=== PATIENT | male | born 1985 ===

== ENCOUNTER 2020-09-01 13:39 | Inpatient (IN) | payer OTHER, SELFPAY ==
[2020-09-01 16:16] LABS: Bilirubin,Urine NEG (Negative); Blood,Urine NEG (Negative); Color,Urine Yellow (Yellow); Mucus,Urine FEW /HPF; Urobilinogen,Urine < 2.0 mg/dL (<2.0); WBC,Urine < 1.0 /HPF (0.0-6.0)
[2020-09-01 16:42] LABS: Alanine Aminotransferase 30 units/L (7-56); Albumin 4.4 g/dL (3.9-5); BUN/Creatinine Ratio 26; Blood Urea Nitrogen 21 mg/dL (9-20); Calcium 9.7 mg/dL (8.4-10.2); Hemolysis Index 48
[2020-09-01 17:09] LABS: Hematocrit 49.1 % (35.5-45.6); Hemoglobin 16.8 gm/dl (11.8-15.2); Mean Corpuscular HGB Conc 34 % (32-34); Mean Corpuscular Volume 82 fl (84-94); Platelet Count 217 K/mm3 (140-440); Red Blood Count 5.96 M/mm3 (3.65-5.03); Red Cell Distribution Width 13.3 % (13.2-15.2)
[2020-09-01 17:44] LABS: Basophils % (Manual) 0 % (0.0-1.8); Eosinophils % (Manual) 0 % (0.0-4.3); Total Cells Counted 100
[2020-09-01 17:45] LABS: RBC Morphology Normal
[2020-09-01] MEDS ORDERED: SODIUM CHLORIDE 0.9% 1000 ML 1,000 ML IV ONE ×2 (19:30→23:03)
[2020-09-01] MEDS ORDERED: ONDANSETRON 4 MG/2 ML INJ IV ONE ×2 (19:30→23:03)
[2020-09-01] MEDS ORDERED: MORPHINE 4 MG/1 ML INJ IV ONE ×2 (19:30→23:03)
--- NOTE | 2020-09-01 20:54 | Emergency Department Report ---
ED Abdominal Pain HPI - General Chief Complaint: Abdominal Pain Stated Complaint: ABD PAIN Time Seen by Provider: 09/01/20 19:28 Source: patient Mode of arrival: Ambulatory Limitations: No Limitations - History of Present Illness Initial Comments: Pt is a 35 year old male med hx: HTN, HLD, who presents for LUQ abd and flank pain. pain is described as 5/10 aching sharp. there is associated N/V . symptoms exacerbated by po intake, symptoms relieved by nothing, pt denies fever or chills,, no sob, no dizziness, no lightheadedness, pt denies hx of same,. MD Complaint: abdominal pain Migration to: no migration Severity scale (0 -10): 10 - Related Data Allergies Allergy/AdvReac Type Severity Reaction Status Date / Time No Known Allergies Allergy Unverified 09/01/20 15:10 ED Review of Systems ROS: Stated complaint: ABD PAIN Other details as noted in HPI Constitutional: denies: chills, fever Eyes: denies: eye pain, eye discharge, vision change ENT: denies: ear pain, throat pain Respiratory: denies: cough, shortness of breath, wheezing Cardiovascular: denies: chest pain, palpitations Endocrine: no symptoms reported Gastrointestinal: denies: abdominal pain, nausea, diarrhea Genitourinary: denies: urgency, dysuria Musculoskeletal: back pain (left flank ) Skin: denies: rash, lesions Neurological: denies: headache, weakness, paresthesias Psychiatric: denies: anxiety, depression Hematological/Lymphatic: denies: easy bleeding, easy bruising ED Past Medical Hx - Past Medical History Previous Medical History?: Yes Hx Hypertension: Yes - Social History Smoking Status: Never Smoker Substance Use Type: None ED Physical Exam - General Limitations: No Limitations General appearance: alert, in no apparent distress - Head Head exam: Present: atraumatic, normocephalic - Eye Eye exam: Present: normal appearance - ENT ENT exam: Present: mucous membranes moist - Neck Neck exam: Present: normal inspection, full ROM. Absent: tenderness - Respiratory Respiratory exam: Present: normal lung sounds bilaterally. Absent: respiratory distress, wheezes, stridor, chest wall tenderness - Cardiovascular Cardiovascular Exam: Present: regular rate, normal rhythm, normal heart sounds. Absent: systolic murmur, diastolic murmur, rubs, gallop - GI/Abdominal GI/Abdominal exam: Present: soft, tenderness (LUQ ), normal bowel sounds. Absent: distended, guarding, rebound, rigid, bruit, hernia - Rectal Rectal exam: Present: deferred - Extremities Exam Extremities exam: Present: normal inspection, full ROM. Absent: tenderness, calf tenderness - Back Exam Back exam: Present: normal inspection, full ROM, CVA tenderness (L). Absent: tenderness, vertebral tenderness - Neurological Exam Neurological exam: Present: alert, oriented X3, CN II-XII intact, normal gait - Psychiatric Psychiatric exam: Present: normal affect, normal mood - Skin Skin exam: Present: warm, dry, intact, normal color. Absent: rash ED Course Vital Signs 09/01/20 09/01/20 15:08 22:29 Temperature 97.4 F L 98.5 F Pulse Rate 69 119 H Respiratory 15 18 Rate Blood Pressure 146/95 Blood Pressure 155/114 [Left] O2 Sat by Pulse 100 97 Oximetry - Reevaluation(s) Reevaluation #1: consulted ED attending reference , reference abnormal CT Scan finding acute renal infarct left. Recommendation consult vascular surgery, Dr. Frias, recommendation: CTA Chest and Abd r/o thrombus 09/01/20 22:51 Reevaluation #2: called Dr Frias Vascular Surgery, advise that pt has had CT Abd and Pelvis with contrast, Radiology advises that CTA cannot be performed for 24 hrs after initial contrast dose. , Plan: admit to hospitalist Dx: Left Renal Infarct. Consulted hospitalist at this time, advises will call back to discuss case and treatment plan: 09/01/20 23:12 Reevaluation #3: Consulted Hospitalist Dr Riley ,recommendation will admit patient , Dx: Acute Renal Infarct, CT Angio as recommended by Vascular Surgery , will obtain janelle , advised Hospitalist that Vascular Surgery Consult Dr. Frias advises that he cannot make further recommendation or intervention until CTAs completed to indentify source of infarct. 09/01/20 23:30 Reevaluation #4: Pt care handoff to hospitalist , discussed same with patient, patient verbalized agreement and understanding of tx plan. 09/01/20 23:47 ED Medical Decision Making - Lab Data Result diagrams: 09/01/20 16:01 09/01/20 16:01 Labs 09/01/20 09/01/20 09/01/20 16:01 16:01 Unknown WBC 12.4 H RBC 5.96 H Hgb 16.8 H Hct 49.1 H MCV 82 L MCH 28 MCHC 34 RDW 13.3 Plt Count 217 Add Manual Diff Complete Total Counted 100 Seg Neutrophils % Installation Tech Seg Neuts % (Manual) 89.0 H Band Neutrophils % 0 Lymphocytes % (Manual) 7.0 L Reactive Lymphs % (Man) 0 Monocytes % (Manual) 4.0 Eosinophils % (Manual) 0 Basophils % (Manual) 0 Metamyelocytes % 0 Myelocytes % 0 Promyelocytes % 0 Blast Cells % 0 Nucleated RBC % Not Reportable Seg Neutrophils # Man 11.0 H Band Neutrophils # 0.0 Lymphocytes # (Manual) 0.9 L Abs React Lymphs (Man) 0.0 Monocytes # (Manual) 0.5 Eosinophils # (Manual) 0.0 Basophils # (Manual) 0.0 Metamyelocytes # 0.0 Myelocytes # 0.0 Promyelocytes # 0.0 Blast Cells # 0.0 WBC Morphology Not Reportable Hypersegmented Neuts Not Reportable Hyposegmented Neuts Not Reportable Hypogranular Neuts Not Reportable Smudge Cells Not Reportable Toxic Granulation Not Reportable Toxic Vacuolation Not Reportable Dohle Bodies Not Reportable Pelger-Huet Anomaly Not Reportable Brooke Rods Not Reportable Platelet Estimate Not Reportable Clumped Platelets Not Reportable Plt Clumps, EDTA Not Reportable Large Platelets Not Reportable Giant Platelets Not Reportable Platelet Satelliting Not Reportable Plt Morphology Comment Not Reportable RBC Morphology Normal Dimorphic RBCs Not Reportable Polychromasia Not Reportable Hypochromasia Not Reportable Poikilocytosis Not Reportable Anisocytosis Not Reportable Microcytosis Not Reportable Macrocytosis Not Reportable Spherocytes Not Reportable Pappenheimer Bodies Not Reportable Sickle Cells Not Reportable Target Cells Not Reportable Tear Drop Cells Not Reportable Ovalocytes Not Reportable Helmet Cells Not Reportable Rh[place] Bodies Not Reportable [place] Rings Not Reportable [place] Cells Not Reportable Bite Cells Not Reportable Crenated Cell Not Reportable Elliptocytes Not Reportable Acanthocytes (Spur) Not Reportable Rouleaux Not Reportable Hemoglobin C Crystals Not Reportable Schistocytes Not Reportable Malaria parasites Not Reportable Kevin Bodies Not Reportable Hem Pathologist Commnt No Sodium 135 L Potassium 3.7 Chloride 95.5 L Carbon Dioxide 30 Anion Gap 13 BUN 21 H Creatinine 0.8 Estimated GFR > 60 BUN/Creatinine Ratio 26 Glucose 123 H Calcium 9.7 Total Bilirubin 0.70 AST 30 ALT 30 Alkaline Phosphatase 77 Total Protein 7.8 Albumin 4.4 Albumin/Globulin Ratio 1.3 Lipase 15 Urine Color Yellow Urine Turbidity Clear Urine pH 7.0 Ur Specific [place] 1.029 Urine Protein 30 mg/dl Urine Glucose (UA) Neg Urine Ketones Tr Urine Blood Neg Urine Nitrite Neg Urine Bilirubin Neg Urine Urobilinogen < 2.0 Ur Leukocyte Esterase Neg Urine WBC (Auto) < 1.0 Urine RBC (Auto) 1.0 U Epithel Cells (Auto) < 1.0 Urine Mucus Few - EKG Data EKG shows normal: sinus rhythm Rate: normal - EKG Data When compared to previous EKG there are: other (no previous ekg available ) Interpretation: normal EKG (Normal EKG, No ST Elevated MS, interp by ED attending) - Radiology Data Radiology results: report reviewed, image reviewed Findings Reporting MD: Malvin Jacob Dictation Time: September 01, 2020 20:48 Cleaner: Not available Staff Midwife Date: CT abdomen pelvis w con INDICATION: abd pain r/o appendicitis. TECHNIQUE: All CT scans at this location are performed using CT dose reduction for ALARA by means of automated exposure control. COMPARISON: None available. FINDINGS: Lung bases are clear of acute disease. Liver, gallbladder, spleen, pancreas, right kidney and both adrenals are negative. Left kidney is abnormal, with no perfusion of the lower pole, with clear demarcation from the perfusion portions of this kidney, suggesting renal infarction. Pelvis Normal appendix. Urinary bladder is negative. No free fluid or inflammation. No significant bowel abnormalities. IMPRESSION: 1. Findings are very suggestive of acute infarction of the lower pole of the left kidney. Signer Name: Malvin Jacob MD Signed: 09/01/2020 8:48 PM Workstation Name: [id number] - Medical Decision Making Findings Reporting MD: Malvin Jacob Dictation Time: September 01, 2020 20:48 Cleaner: Not available Staff Midwife Date: CT abdomen pelvis w con INDICATION: abd pain r/o appendicitis. TECHNIQUE: All CT scans at this location are performed using CT dose reduction for ALARA by means of automated exposure control. COMPARISON: None available. FINDINGS: Lung bases are clear of acute disease. Liver, gallbladder, spleen, pancreas, right kidney and both adrenals are negative. Left kidney is abnormal, with no perfusion of the lower pole, with clear demarcation from the perfusion portions of this kidney, suggesting renal infarction. Pelvis Normal appendix. Urinary bladder is negative. No free fluid or inflammation. No significant bowel abnormalities. IMPRESSION: 1. Findings are very suggestive of acute infarction of the lower pole of the left kidney. Signer Name: Malvin Jacob MD Signed: 09/01/2020 8:48 PM Workstation Name: [id number] Critical care attestation.: If time is entered above; I have spent that time in minutes in the direct care of this critically ill patient, excluding procedure time. ED Disposition Clinical Impression: Renal infarct Disposition: DC-09 OP ADMIT IP TO THIS HOSP Is pt being admited?: Yes Does the pt Need Aspirin: No Condition: Stable Time of Disposition: 23:36
--- NOTE | 2020-09-01 21:52 | Cat Scan Report ---
CT abdomen pelvis w con INDICATION: abd pain r/o appendicitis. TECHNIQUE: All CT scans at this location are performed using CT dose reduction for ALARA by means of automated e xposure control. COMPARISON: None available. FINDINGS: Lung bases are clear of acute disease. Liver, gallbladder, spleen, pancreas, right kidney and both ad renals are negative. Left kidney is abnormal, with no perfusion of the lower pole, with clear demarca tion from the perfusion portions of this kidney, suggesting renal infarction. Pelvis Normal appendix. Urinary bladder is negative. No free fluid or inflammation. No significant bowel abn ormalities. IMPRESSION: 1. Findings are very suggestive of acute infarction of the lower pole of the left kidney. Signer Name: Malvin Jacob MD Signed: 09/01/2020 9:48 PM Workstation Name: [id number]
[2020-09-01 23:22] LABS: INR 1.03 (0.87-1.13)
[2020-09-01 23:23] LABS: Partial Thromboplastin Time 27.8 Sec. (24.2-36.6)
--- NOTE | 2020-09-01 23:26 | XRay Report ---
CHEST 1 VIEW 09/01/2020 11:19 PM INDICATION / CLINICAL INFORMATION: cough fever. COMPARISON: None available. FINDINGS: SUPPORT DEVICES: None. HEART / MEDIASTINUM: No significant abnormality. LUNGS / PLEURA: No significant pulmonary or pleural abnormality. No pneumothorax. ADDITIONAL FINDINGS: No significant additional findings. IMPRESSION: 1. No acute findings. Signer Name: Deandre Gallego MD Signed: 09/01/2020 11:21 PM Workstation Name: [id number]
[2020-09-01] MEDS ORDERED: SODIUM CHLORIDE 0.9% 1000 ML 1,000 ML IV SCH (23:45)
[2020-09-01] MEDS ORDERED: HEPARIN 10,000 UNITS/10 ML VIAL IV ONE (23:46)
[2020-09-02 00:40] LABS: Hematocrit 47.1 % (35.5-45.6); Hemoglobin 16.1 gm/dl (11.8-15.2)
[2020-09-02 00:53] LABS: INR 1.17 (0.87-1.13)
[2020-09-02 01:05] LABS: Alanine Aminotransferase 30 units/L (7-56)
[2020-09-02 01:06] LABS: Bilirubin,Direct < 0.2 mg/dL (0-0.2)
[2020-09-02 01:10] LABS: Partial Thromboplastin Time > 240.0 Sec. (24.2-36.6)
[2020-09-02] MEDS ORDERED: ONDANSETRON 4 MG/2 ML INJ IV PRN (01:45)
[2020-09-02] MEDS ORDERED: MAGNESIUM HYDROXIDE (MOM) ORAL LIQD UDC PO PRN (01:45)
[2020-09-02] MEDS: HEPARIN/ 0.45% NACL DRIP 25,000 UNIT/500 ML BAG IV SCH ×2 (01:49→17:41)
--- NOTE | 2020-09-02 01:55 | History and Physical Report ---
History of Present Illness Date of examination: 09/02/20 Date of admission: 09/02/2020 Chief complaint: Left Flank pain History of present illness: 35-year-old male with known history of hypertension presenting to the emergency room today complaining of for left flank pain. Pain is said to be sharp and he has had some associated nausea and vomiting. He denies any fever or chills, denies any chest pain or shortness of breath, denies any headache or dizziness. Patient denies any hematuria or dysuria. Pain is said to be about 5-6 over 10 in severity and he describes it be sharp. Pain is made worse by oral intake. No no relieving factor. Work-up in the emergency room today reveals left renal infarction on the CT angiogram of the abdomen and pelvis. Vascular surgeon Dr. Frias was consulted by the ER physician recommendation is to have a CT angiogram of the chest and abdomen. However test cannot be done immediately because patient has had IV contrast for the CT of the abdomen. Meanwhile patient has been commenced on anticoagulation and will schedule for angiogram as recommended by the vascular surgeon. Past History Past Medical History: hypertension, hyperlipidemia Past Surgical History: No surgical history Social history: no significant social history Family history: no significant family history Medications and Allergies Allergies Allergy/AdvReac Type Severity Reaction Status Date / Time No Known Allergies Allergy Verified 09/01/20 23:50 Home Medications Medication Instructions Recorded Confirmed Last Taken Type No Known Home Medications [No 09/02/20 09/02/20 Unknown History Reported Home Medications] Active Meds: Active Medications Acetaminophen (Tylenol) 650 mg PO Q4H PRN PRN Reason: Pain MILD(1-3)/Fever >100.5/MANUEL Sodium Chloride (Nacl 0.9% 1000 Ml) 1,000 mls @ 125 mls/hr IV ONCE ONE Stop: 09/02/20 07:02 Last Admin: 09/01/20 23:27 Dose: 125 mls/hr Documented by: Sodium Chloride (Nacl 0.9% 1000 Ml) 1,000 mls @ 125 mls/hr IV DIRECT SAMUEL Heparin Sodium/Sodium Chloride (Heparin/ 0.45% Nacl-25,000 Unit/500 Ml) 25,000 unit in 500 mls @ 23 mls/hr IV TITR SAMUEL; Protocol Last Admin: 09/02/20 01:49 Dose: 1,150 units/hr, 23 mls/hr Documented by: Sodium Chloride (Nacl 0.9% 1000 Ml) 1,000 mls @ 75 mls/hr IV DIRECT SAMUEL Magnesium Hydroxide (Milk Of Magnesia) 30 ml PO Q4H PRN PRN Reason: Constipation Morphine Sulfate (Morphine) 2 mg IV Q4H PRN PRN Reason: Pain, Moderate (4-6) Ondansetron HCl (Zofran) 4 mg IV Q8H PRN PRN Reason: Nausea And Vomiting Sodium Chloride (Sodium Chloride Flush Syringe 10 Ml) 10 ml IV BID SAMUEL Sodium Chloride (Sodium Chloride Flush Syringe 10 Ml) 10 ml IV PRN PRN PRN Reason: LINE FLUSH Review of Systems Constitutional: no fever, no chills Ears, nose, mouth and throat: no nasal congestion, no sore throat Cardiovascular: no chest pain, no palpitations Respiratory: no cough, no shortness of breath Genitourinary Male: flank pain (left), no dysuria, no hematuria, no nocturia Musculoskeletal: no neck pain, no low back pain Integumentary: no rash, no pruritis Neurological: no headaches, no confusion Psychiatric: no anxiety, no depression Exam - Constitutional Vitals: Temp Pulse Resp BP Pulse Ox 98.5 F 119 H 18 155/114 97 09/01/20 22:29 09/01/20 22:29 09/01/20 22:29 09/01/20 22:29 09/01/20 22:29 General appearance: Present: no acute distress, well-nourished - EENT Eyes: Present: PERRL, EOM intact. Absent: scleral icterus ENT: hearing intact, clear oral mucosa, dentition normal - Neck Neck: Present: supple, normal ROM - Respiratory Respiratory effort: normal Respiratory: bilateral: CTA - Cardiovascular Rhythm: regular Heart Sounds: Present: S1 & S2. Absent: gallop, systolic murmur, diastolic murmur, rub - Extremities Extremities: no ischemia, pulses intact, pulses symmetrical, No edema, Full ROM Peripheral Pulses: within normal limits - Abdominal General gastrointestinal: Present: soft, tender (Left flank), non-distended, normal bowel sounds. Absent: mass - Integumentary Integumentary: Present: clear, warm, dry. Absent: rash - Musculoskeletal Musculoskeletal: strength equal bilaterally - Psychiatric Psychiatric: appropriate mood/affect, intact judgment & insight, memory intact, cooperative - Neurologic Neurologic: CNII-XII intact, no focal deficits, moves all extremities HEART Score - HEART Score Troponin: Troponin T < 0.010 ng/mL (0.00-0.029) 09/01/20 22:54 Results - Labs CBC & Chem 7: 09/02/20 00:19 09/01/20 16:01 Labs: Abnormal lab results 09/01/20 09/01/20 09/02/20 Range/Units 16:01 16:01 00:19 WBC 12.4 H (4.5-11.0) K/mm3 RBC 5.96 H (3.65-5.03) M/mm3 Hgb 16.8 H 16.1 H (11.8-15.2) gm/dl Hct 49.1 H 47.1 H (35.5-45.6) % MCV 82 L (84-94) fl Seg Neuts % (Manual) 89.0 H (40.0-70.0) % Lymphocytes % (Manual) 7.0 L (13.4-35.0) % Seg Neutrophils # Man 11.0 H (1.8-7.7) K/mm3 Lymphocytes # (Manual) 0.9 L (1.2-5.4) K/mm3 PT (12.2-14.9) Sec. INR (0.87-1.13) APTT (24.2-36.6) Sec. Sodium 135 L (137-145) mmol/L Chloride 95.5 L (98-107) mmol/L BUN 21 H (9-20) mg/dL Glucose 123 H (75-100) mg/dL 09/02/20 Range/Units 00:19 WBC (4.5-11.0) K/mm3 RBC (3.65-5.03) M/mm3 Hgb (11.8-15.2) gm/dl Hct (35.5-45.6) % MCV (84-94) fl Seg Neuts % (Manual) (40.0-70.0) % Lymphocytes % (Manual) (13.4-35.0) % Seg Neutrophils # Man (1.8-7.7) K/mm3 Lymphocytes # (Manual) (1.2-5.4) K/mm3 PT 15.0 H (12.2-14.9) Sec. INR 1.17 H (0.87-1.13) APTT > 240.0 H* (24.2-36.6) Sec. Sodium (137-145) mmol/L Chloride (98-107) mmol/L BUN (9-20) mg/dL Glucose (75-100) mg/dL Assessment and Plan - Patient Problems (1) Renal infarct Current Visit: Yes Status: Acute Plan to address problem: Patient placed on anticoagulation. We will request for CT angiogram of the chest and abdomen We will await vascular surgery surgeon evaluation and recommendation. (2) Hypertension Current Visit: Yes Status: Acute Plan to address problem: We will resume routine home medications and monitor vital signs closely. (3) DVT prophylaxis Current Visit: Yes Status: Acute Plan to address problem: Patient on anticoagulation. (4) Full code status Current Visit: Yes Status: Acute
[2020-09-02] MEDS: MORPHINE 2 MG/1 ML INJ IV PRN ×4 (04:25→22:47)
[2020-09-02] MEDS: SODIUM CHLORIDE 0.9% 1000 ML 1,000 ML IV SCH ×2 (04:30→17:30)
--- NOTE | 2020-09-02 11:32 | Progress Note ---
Assessment and Plan Assessment and plan: --Acute renal infarct/lower pole left kidney Current Visit: Yes Status: Acute Plan to address problem: Patient placed on heparin drip We will request for CT angiogram of the chest and abdomen Echocardiogram; to rule out cardioembolic source Cardiology consult if needed Vascular consulted, follow evaluation and recommendations --SIRS; Current Visit: Yes Status: Acute Plan to address problem: By criteria, fever, tachycardia, leukocytosis Urine and blood cultures Chest x-ray negative, urine analysis negative -Hypertension Current Visit: Yes Status: Acute Plan to address problem: We will resume routine home medications and monitor vital signs closely. --DVT prophylaxis Current Visit: Yes Status: Acute Plan to address problem: Patient on anticoagulation. --Full code status Current Visit: Yes Status: Acute We will closely monitor the patient and adjust management as needed Follow vascular evaluation and recommendations, follow CTA abdomen and CTA chest Plan of care reviewed with the patient and his nurse History Interval history: I have seen and examined the patient at the bedside today patient's chart Patient's chart, current medications, tests and reports reviewed Admitted with flank pain, initial work-up consistent with renal infarct Patient continues to have Hospitalist Physical - Constitutional Vitals: Temp Pulse Resp BP Pulse Ox 98.5 F 98 H 16 124/80 98 09/01/20 22:29 09/02/20 02:00 09/02/20 02:00 09/02/20 02:00 09/02/20 02:00 General appearance: Present: no acute distress, well-nourished - EENT Eyes: Present: PERRL, EOM intact - Neck Neck: Present: supple, normal ROM - Respiratory Respiratory effort: normal Respiratory: bilateral: diminished, negative: rales, rhonchi, wheezing - Cardiovascular Rhythm: regular Heart Sounds: Present: S1 & S2 - Extremities Extremities: no ischemia, No edema - Abdominal General gastrointestinal: soft, non-tender, non-distended, normal bowel sounds - Integumentary Integumentary: Present: clear, warm - Psychiatric Psychiatric: appropriate mood/affect, cooperative - Neurologic Neurologic: moves all extremities HEART Score - HEART Score Troponin: Troponin T < 0.010 ng/mL (0.00-0.029) 09/01/20 22:54 Results - Labs CBC & Chem 7: 09/02/20 00:19 09/01/20 16:01 Labs: Laboratory Last Values WBC 12.4 K/mm3 (4.5-11.0) H 09/01/20 16:01 RBC 5.96 M/mm3 (3.65-5.03) H 09/01/20 16:01 Hgb 16.1 gm/dl (11.8-15.2) H 09/02/20 00:19 Hct 47.1 % (35.5-45.6) H 09/02/20 00:19 MCV 82 fl (84-94) L 09/01/20 16:01 MCH 28 pg (28-32) 09/01/20 16:01 MCHC 34 % (32-34) 09/01/20 16:01 RDW 13.3 % (13.2-15.2) 09/01/20 16:01 Plt Count 199 K/mm3 (140-440) 09/02/20 00:19 Add Manual Diff Complete 09/01/20 16: Total Counted 100 09/01/20 16:01 Seg Neutrophils % Rabbet Operator 09/01/20 16:01 Seg Neuts % (Manual) 89.0 % (40.0-70.0) H 09/01/20 16:01 Band Neutrophils % 0 % 09/01/20 16:01 Lymphocytes % (Manual) 7.0 % (13.4-35.0) L 09/01/20 16:01 Reactive Lymphs % (Man) 0 % 09/01/20 16:01 Monocytes % (Manual) 4.0 % (0.0-7.3) 09/01/20 16:01 Eosinophils % (Manual) 0 % (0.0-4.3) 09/01/20 16:01 Basophils % (Manual) 0 % (0.0-1.8) 09/01/20 16:01 Metamyelocytes % 0 % 09/01/20 16:01 Myelocytes % 0 % 09/01/20 16:01 Promyelocytes % 0 % 09/01/20 16:01 Blast Cells % 0 % 09/01/20 16:01 Nucleated RBC % Not Reportable 09/01/20 16:01 Seg Neutrophils # Man 11.0 K/mm3 (1.8-7.7) H 09/01/20 16:01 Band Neutrophils # 0.0 K/mm3 09/01/20 16:01 Lymphocytes # (Manual) 0.9 K/mm3 (1.2-5.4) L 09/01/20 16:01 Abs React Lymphs (Man) 0.0 K/mm3 09/01/20 16:01 Monocytes # (Manual) 0.5 K/mm3 (0.0-0.8) 09/01/20 16:01 Eosinophils # (Manual) 0.0 K/mm3 (0.0-0.4) 09/01/20 16:01 Basophils # (Manual) 0.0 K/mm3 (0.0-0.1) 09/01/20 16:01 Metamyelocytes # 0.0 K/mm3 09/01/20 16:01 Myelocytes # 0.0 K/mm3 09/01/20 16:01 Promyelocytes # 0.0 K/mm3 09/01/20 16:01 Blast Cells # 0.0 K/mm3 09/01/20 16:01 WBC Morphology Not Reportable 09/01/20 16:01 Hypersegmented Neuts Not Reportable 09/01/20 16:01 Hyposegmented Neuts Not Reportable 09/01/20 16:01 Hypogranular Neuts Not Reportable 09/01/20 16:01 Smudge Cells Not Reportable 09/01/20 16:01 Toxic Granulation Not Reportable 09/01/20 16:01 Toxic Vacuolation Not Reportable 09/01/20 16:01 Dohle Bodies Not Reportable 09/01/20 16:01 Pelger-Huet Anomaly Not Reportable 09/01/20 16:01 Brooke Rods Not Reportable 09/01/20 16:01 Platelet Estimate Not Reportable 09/01/20 16:01 Clumped Platelets Not Reportable 09/01/20 16:01 Plt Clumps, EDTA Not Reportable 09/01/20 16:01 Large Platelets Not Reportable 09/01/20 16:01 Giant Platelets Not Reportable 09/01/20 16:01 Platelet Satelliting Not Reportable 09/01/20 16:01 Plt Morphology Comment Not Reportable 09/01/20 16:01 RBC Morphology Normal 09/01/20 16:01 Dimorphic RBCs Not Reportable 09/01/20 16:01 Polychromasia Not Reportable 09/01/20 16:01 Hypochromasia Not Reportable 09/01/20 16:01 Poikilocytosis Not Reportable 09/01/20 16:01 Anisocytosis Not Reportable 09/01/20 16:01 Microcytosis Not Reportable 09/01/20 16:01 Macrocytosis Not Reportable 09/01/20 16:01 Spherocytes Not Reportable 09/01/20 16:01 Pappenheimer Bodies Not Reportable 09/01/20 16:01 Sickle Cells Not Reportable 09/01/20 16:01 Target Cells Not Reportable 09/01/20 16:01 Tear Drop Cells Not Reportable 09/01/20 16:01 Ovalocytes Not Reportable 09/01/20 16:01 Helmet Cells Not Reportable 09/01/20 16:01 Rhoades-Page Bodies Not Reportable 09/01/20 16:01 Coleman Rings Not Reportable 09/01/20 16:01 Elton Cells Not Reportable 09/01/20 16:01 Bite Cells Not Reportable 09/01/20 16:01 Crenated Cell Not Reportable 09/01/20 16:01 Elliptocytes Not Reportable 09/01/20 16:01 Acanthocytes (Spur) Not Reportable 09/01/20 16:01 Rouleaux Not Reportable 09/01/20 16:01 Hemoglobin C Crystals Not Reportable 09/01/20 16:01 Schistocytes Not Reportable 09/01/20 16:01 Malaria parasites Not Reportable 09/01/20 16:01 Kevin Bodies Not Reportable 09/01/20 16:01 Hem Pathologist Commnt No 09/01/20 16:01 PT 15.0 Sec. (12.2-14.9) H 09/02/20 00:19 INR 1.17 (0.87-1.13) H 09/02/20 00:19 APTT > 240.0 Sec. (24.2-36.6) H* 09/02/20 00:19 Sodium 135 mmol/L (137-145) L 09/01/20 16:01 Potassium 3.7 mmol/L (3.6-5.0) 09/01/20 16:01 Chloride 95.5 mmol/L (98-107) L 09/01/20 16:01 Carbon Dioxide 30 mmol/L (22-30) 09/01/20 16:01 Anion Gap 13 mmol/L 09/01/20 16:01 BUN 21 mg/dL (9-20) H 09/01/20 16:01 Creatinine 0.8 mg/dL (0.8-1.3) 09/01/20 16:01 Estimated GFR > 60 ml/min 09/01/20 16:01 BUN/Creatinine Ratio 26 % 09/01/20 16:01 Glucose 123 mg/dL (75-100) H 09/01/20 16:01 Calcium 9.7 mg/dL (8.4-10.2) 09/01/20 16:01 Total Bilirubin 0.50 mg/dL (0.1-1.2) 09/02/20 00:19 Direct Bilirubin < 0.2 mg/dL (0-0.2) 09/02/20 00:19 Indirect Bilirubin 0.3 mg/dL 09/02/20 00:19 AST 31 units/L (5-40) 09/02/20 00:19 ALT 30 units/L (7-56) 09/02/20 00:19 Alkaline Phosphatase 73 units/L (35-129) 09/02/20 00:19 Troponin T < 0.010 ng/mL (0.00-0.029) 09/01/20 22:54 Total Protein 6.6 g/dL (6.3-8.2) 09/02/20 00:19 Albumin 4.0 g/dL (3.9-5) 09/02/20 00:19 Albumin/Globulin Ratio 1.5 % 09/02/20 00:19 Lipase 15 units/L (13-60) 09/01/20 16:01 Urine Color Yellow (Yellow) 09/01/20 Unknown Urine Turbidity Clear (Clear) 09/01/20 Unknown Urine pH 7.0 (5.0-7.0) 09/01/20 Unknown Ur Specific [place] 1.029 (1.003-1.030) 09/01/20 Unknown Urine Protein 30 mg/dl mg/dL (Negative) 09/01/20 Unknown Urine Glucose (UA) Neg mg/dL (Negative) 09/01/20 Unknown Urine Ketones Tr mg/dL (Negative) 09/01/20 Unknown Urine Blood Neg (Negative) 09/01/20 Unknown Urine Nitrite Neg (Negative) 09/01/20 Unknown Urine Bilirubin Neg (Negative) 09/01/20 Unknown Urine Urobilinogen < 2.0 mg/dL (<2.0) 09/01/20 Unknown Ur Leukocyte Esterase Neg (Negative) 09/01/20 Unknown Urine WBC (Auto) < 1.0 /HPF (0.0-6.0) 09/01/20 Unknown Urine RBC (Auto) 1.0 /HPF (0.0-6.0) 09/01/20 Unknown U Epithel Cells (Auto) < 1.0 /HPF (0-13.0) 09/01/20 Unknown Urine Mucus Few /HPF 09/01/20 Unknown Rubio/IV: Voiding Method Toilet IV Catheter Type [Right INT / Saline Lock Forearm] Active Medications - Current Medications Current Medications: Generic Name Dose Route Start Last Admin Trade Name Freq PRN Reason Stop Dose Admin Acetaminophen 650 mg 09/02/20 01:45 Tylenol PO Q4H PRN Pain MILD(1-3)/Fever >100.5/MANUEL Heparin Sodium/Sodium Chloride 25,000 unit in 500 mls @ 23 mls/hr 09/02/20 02:00 09/02/20 01:49 Heparin/ 0.45% Nacl-25,000 Unit/500 Ml IV 1,150 units/hr TITR SAMUEL 23 mls/hr Administration Protocol 1,150 UNITS/HR Sodium Chloride 1,000 mls @ 75 mls/hr 09/02/20 01:45 09/02/20 04:30 Nacl 0.9% 1000 Ml IV 75 mls/hr DIRECT SAMUEL Administration Magnesium Hydroxide 30 ml 09/02/20 01:45 Milk Of Magnesia PO Q4H PRN Constipation Morphine Sulfate 2 mg 09/02/20 01:45 09/02/20 09:24 Morphine IV 2 mg Q4H PRN Administration Pain, Moderate (4-6) Ondansetron HCl 4 mg 09/02/20 01:45 Zofran IV Q8H PRN Nausea And Vomiting Sodium Chloride 10 ml 09/02/20 10:00 Sodium Chloride Flush Syringe 10 Ml IV BID SAMUEL Sodium Chloride 10 ml 09/02/20 01:45 Sodium Chloride Flush Syringe 10 Ml IV PRN PRN LINE FLUSH
--- NOTE | 2020-09-02 11:57 | Consultation ---
History of Present Illness - Reason for Consult Consult date: 09/02/20 Left Renal Infarct Requesting physician: JAMEY WILLARD - History of Present Illness The patient is a 32 year old male with a history of HTN and HLD who presented to the Emergency Department with complaints of a sudden onset of left side abdominal pain that began a 0700 that morning. He states he had had similar pain in the past but it had always resolved after several minutes and this epis ode did not get better and was worse than the previous episodes of pain. He states the pain was also associated with nausea and he vomited with any attempted oral intake. He states he had a fever however he did not have a thermometer to check his temperature. He denies any productive cough but does state that he has a history of occasional left side chest pain that has been present for years. His hypertension was previously poorly controlled however he was able to manage it better after losing 40-50 pounds. He denies any alcohol, tobacco, or illicit drug use. He reports a history of nanci a rare bacteria in [place], approximately 15 years ago [place], that caused him to develop ulceration on his left leg. He states that it was unable to be treated in [place] and he had ulcerations on his leg that would not heal until he received the proper treatment [place], [place], approximately 1 1/2 years ago. He has no additional complaints at this time. Past History Past Medical History: hypertension, hyperlipidemia Past Surgical History: No surgical history Social history: no significant social history Family history: no significant family history Medications and Allergies Allergies Allergy/AdvReac Type Severity Reaction Status Date / Time No Known Allergies Allergy Verified 09/01/20 23:50 Home Medications Medication Instructions Recorded Confirmed Last Taken Type No Known Home Medications [No 09/02/20 09/02/20 Unknown History Reported Home Medications] Active Meds: Active Medications Acetaminophen (Tylenol) 650 mg PO Q4H PRN PRN Reason: Pain MILD(1-3)/Fever >100.5/MANUEL Heparin Sodium/Sodium Chloride (Heparin/ 0.45% Nacl-25,000 Unit/500 Ml) 25,000 unit in 500 mls @ 23 mls/hr IV TITR SAMUEL; Protocol Last Admin: 09/02/20 01:49 Dose: 1,150 units/hr, 23 mls/hr Documented by: Sodium Chloride (Nacl 0.9% 1000 Ml) 1,000 mls @ 75 mls/hr IV DIRECT SAMUEL Last Admin: 09/02/20 04:30 Dose: 75 mls/hr Documented by: Magnesium Hydroxide (Milk Of Magnesia) 30 ml PO Q4H PRN PRN Reason: Constipation Morphine Sulfate (Morphine) 2 mg IV Q4H PRN PRN Reason: Pain, Moderate (4-6) Last Admin: 09/02/20 09:24 Dose: 2 mg Documented by: Ondansetron HCl (Zofran) 4 mg IV Q8H PRN PRN Reason: Nausea And Vomiting Sodium Chloride (Sodium Chloride Flush Syringe 10 Ml) 10 ml IV BID SAMUEL Sodium Chloride (Sodium Chloride Flush Syringe 10 Ml) 10 ml IV PRN PRN PRN Reason: LINE FLUSH Review of Systems All systems: negative Exam - Constitutional Vitals: Temp Pulse Resp BP Pulse Ox 98.5 F 98 H 16 124/80 98 09/01/20 22:29 09/02/20 02:00 09/02/20 02:00 09/02/20 02:00 09/02/20 02:00 General appearance: Present: no acute distress - Neck Neck: Present: supple - Respiratory Respiratory effort: normal - Cardiovascular Rhythm: regular - Extremities Extremities: no ischemia, pulses intact (All pulses are palpable throughout) Extremity abnormal: other (multiple healed ulcerations on his left lower leg) - Abdominal General gastrointestinal: Present: soft, non-tender, non-distended Male genitourinary: Present: deferred - Rectal Rectal Exam: deferred Results - Labs CBC & Chem 7: 09/02/20 00:19 09/01/20 16:01 Labs: Abnormal lab results 09/01/20 09/01/20 09/02/20 Range/Units 16:01 16:01 00:19 WBC 12.4 H (4.5-11.0) K/mm3 RBC 5.96 H (3.65-5.03) M/mm3 Hgb 16.8 H 16.1 H (11.8-15.2) gm/dl Hct 49.1 H 47.1 H (35.5-45.6) % MCV 82 L (84-94) fl Seg Neuts % (Manual) 89.0 H (40.0-70.0) % Lymphocytes % (Manual) 7.0 L (13.4-35.0) % Seg Neutrophils # Man 11.0 H (1.8-7.7) K/mm3 Lymphocytes # (Manual) 0.9 L (1.2-5.4) K/mm3 PT (12.2-14.9) Sec. INR (0.87-1.13) APTT (24.2-36.6) Sec. Sodium 135 L (137-145) mmol/L Chloride 95.5 L (98-107) mmol/L BUN 21 H (9-20) mg/dL Glucose 123 H (75-100) mg/dL 09/02/20 Range/Units 00:19 WBC (4.5-11.0) K/mm3 RBC (3.65-5.03) M/mm3 Hgb (11.8-15.2) gm/dl Hct (35.5-45.6) % MCV (84-94) fl Seg Neuts % (Manual) (40.0-70.0) % Lymphocytes % (Manual) (13.4-35.0) % Seg Neutrophils # Man (1.8-7.7) K/mm3 Lymphocytes # (Manual) (1.2-5.4) K/mm3 PT 15.0 H (12.2-14.9) Sec. INR 1.17 H (0.87-1.13) APTT > 240.0 H* (24.2-36.6) Sec. Sodium (137-145) mmol/L Chloride (98-107) mmol/L BUN (9-20) mg/dL Glucose (75-100) mg/dL - Imaging and Cardiology Chest x-ray: image reviewed CT scan - pelvis: image reviewed Assessment and Plan The patient is a 35 year old male who presented with abdominal pain and was found to have an infarction of the lower pole of the left kidney. This would most likely come from an embolic source which has not yet been identified. The CT of the A/P, with contrast does not, reveal a source in the imaged section of the aorta. The thoracic aorta has not been imaged and should be ruled out with a CTA of the chest however I think its unlikely to be the source as well. Given the patient's history of left leg infection, that he dealt with for 15 years, it's possible that he may have vegetations on his valve. Would recommend consu lting cardiology for an ECHO to evaluate his heart as well. Would continue heparin gtt until a source is identified.
[2020-09-02] MEDS ORDERED: FLU VACC QUAD 2020-2021 (6 months +)/PF 60 0.5 ML SYRINGE IM ONE (12:00)
[2020-09-02] MEDS: ACETAMINOPHEN 325 MG TAB PO PRN (19:07)
--- NOTE | 2020-09-02 23:44 | Cat Scan Report ---
CTA CHEST, ABDOMEN, AND PELVIS WITH CONTRAST INDICATION / CLINICAL INFORMATION: R/O Thrombus - ID source for renal Infarct. TECHNIQUE: Axial CT images were obtained through the chest, abdomen, and pelvis before and after injection of 10 0 mL Omnipaque 350 IV contrast. 3 plane MIP and/or 3D reconstructions were produced. All CT scans at this location are performed using CT dose reduction for ALARA by means of automated exposure control. COMPARISON: None available. FINDINGS: HEART: No significant abnormality. 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 Divert iculum contains a small amount of mural thrombus best seen on axial series 2 image 72. No significant atherosclerotic calcification. GREAT VESSELS: No significant abnormality. PULMONARY ARTERIES: No significant abnormality. ADDITIONAL CHEST FINDINGS: No significant abnormality. ABDOMINAL AORTA: No significant abnormality. RENAL ARTERIES: 2 right renal arteries appear within normal limits. Main left renal artery supplying the upper pole is patent. Infarct of the lower pole of the left kidney is unchanged since prior study . CELIAC ARTERY: No significant abnormality. SUPERIOR MESENTERIC ARTERY: No significant abnormality. INFERIOR MESENTERIC ARTERY: No significant abnormality. RIGHT ILIAC ARTERIES: No significant abnormality.. LEFT ILIAC ARTERIES: No significant abnormality.. ADDITIONAL ABDOMINOPELVIC FINDINGS: No significant abnormality. SKELETAL STRUCTURES: No significant abnormality. IMPRESSION: 1. 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 Thi s could potentially be the source of embolism related left renal infarct. Signer Name: Deandre Gallego MD Signed: 09/02/2020 11:39 PM Workstation Name: [id number]
[2020-09-03] MEDS: MORPHINE 2 MG/1 ML INJ IV PRN ×5 (05:05→22:15)
[2020-09-03] MEDS: METOPROLOL TARTRATE 25 MG TAB PO SCH ×2 (09:46→22:51)
[2020-09-03 10:33] LABS: BUN/Creatinine Ratio 11; Blood Urea Nitrogen 9 mg/dL (9-20); Hemolysis Index 18
[2020-09-03 10:45] LABS: INR 1.16 (0.87-1.13)
[2020-09-03 10:46] LABS: Hematocrit 46.4 % (35.5-45.6); Hemoglobin 16.2 gm/dl (11.8-15.2); Mean Corpuscular HGB Conc 35 % (32-34); Mean Corpuscular Volume 81 fl (84-94); Platelet Count 161 K/mm3 (140-440); Red Blood Count 5.72 M/mm3 (3.65-5.03); Red Cell Distribution Width 13.3 % (13.2-15.2)
--- NOTE | 2020-09-03 10:46 | Progress Note ---
Assessment and Plan Assessment and plan: --Acute renal infarct/lower pole left kidney Current Visit: Yes Status: Acute Plan to address problem: On heparin drip Vascular following. 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 --Hypokalemia; Replenish with oral KCl, monitor electrolytes. --SIRS; Current Visit: Yes Status: Acute Plan to address problem: By criteria, fever, tachycardia, leukocytosis, Urine and blood cultures Chest x-ray negative, urine analysis negative -Hypertension; Current Visit: Yes Status: Acute Plan to address problem: Continue metoprolol, as needed labetalol Closely monitor --DVT prophylaxis Current Visit: Yes Status: Acute Plan to address problem: Patient on heparin drip --Full code status Current Visit: Yes Status: Acute We will closely monitor the patient and adjust management as needed Follow vascular and cardiology evaluation and recommendations Plan of care reviewed with the patient and his nurse History Interval history: I have seen and examined the patient at the bedside this morning Patient's chart, tests reports, vital signs reviewed Patient continues to have left flank pain Slight improvement with pain medications Alert awake oriented Vital signs reviewed Low-grade fever Hospitalist Physical - Constitutional Vitals: Temp Pulse Resp BP Pulse Ox 100.1 F H 104 H 20 118/78 96 09/03/20 04:44 09/03/20 09:46 09/03/20 04:44 09/03/20 09:46 09/03/20 04:44 General appearance: Present: no acute distress, well-nourished - EENT Eyes: Present: PERRL, EOM intact - Neck Neck: Present: supple, normal ROM - Respiratory Respiratory effort: normal Respiratory: bilateral: diminished, negative: rales, rhonchi, wheezing - Cardiovascular Rhythm: regular Heart Sounds: Present: S1 & S2 - Extremities Extremities: no ischemia, No edema - Abdominal General gastrointestinal: soft, non-tender, non-distended, normal bowel sounds - Integumentary Integumentary: Present: clear, warm - Psychiatric Psychiatric: appropriate mood/affect, cooperative - Neurologic Neurologic: moves all extremities HEART Score - HEART Score Troponin: Troponin T < 0.010 ng/mL (0.00-0.029) 09/01/20 22:54 Results - Labs CBC & Chem 7: 09/03/20 08:51 09/03/20 08:51 Labs: Laboratory Last Values WBC 12.4 K/mm3 (4.5-11.0) H 09/01/20 16:01 RBC 5.96 M/mm3 (3.65-5.03) H 09/01/20 16:01 Hgb 16.1 gm/dl (11.8-15.2) H 09/02/20 00:19 Hct 47.1 % (35.5-45.6) H 09/02/20 00:19 MCV 82 fl (84-94) L 09/01/20 16:01 MCH 28 pg (28-32) 09/01/20 16:01 MCHC 34 % (32-34) 09/01/20 16:01 RDW 13.3 % (13.2-15.2) 09/01/20 16:01 Plt Count 199 K/mm3 (140-440) 09/02/20 00:19 Add Manual Diff Complete 09/01/20 16:01 Total Counted 100 09/01/20 16:01 Seg Neutrophils % [employer] Rep[employer]r 09/01/20 16:01 Seg Neuts % (Manual) 89.0 % (40.0-70.0) H 09/01/20 16:01 Band Neutrophils % 0 % 09/01/20 16:01 Lymphocytes % (Manual) 7.0 % (13.4-35.0) L 09/01/20 16:01 Reactive Lymphs % (Man) 0 % 09/01/20 16:01 Monocytes % (Manual) 4.0 % (0.0-7.3) 09/01/20 16:01 Eosinophils % (Manual) 0 % (0.0-4.3) 09/01/20 16:01 Basophils % (Manual) 0 % (0.0-1.8) 09/01/20 16:01 Metamyelocytes % 0 % 09/01/20 16:01 Myelocytes % 0 % 09/01/20 16:01 Promyelocytes % 0 % 09/01/20 16:01 Blast Cells % 0 % 09/01/20 16:01 Nucleated RBC % Not Reportable 09/01/20 16:01 Seg Neutrophils # Man 11.0 K/mm3 (1.8-7.7) H 09/01/20 16:01 Band Neutrophils # 0.0 K/mm3 09/01/20 16:01 Lymphocytes # (Manual) 0.9 K/mm3 (1.2-5.4) L 09/01/20 16:01 Abs React Lymphs (Man) 0.0 K/mm3 09/01/20 16:01 Monocytes # (Manual) 0.5 K/mm3 (0.0-0.8) 09/01/20 16:01 Eosinophils # (Manual) 0.0 K/mm3 (0.0-0.4) 09/01/20 16:01 Basophils # (Manual) 0.0 K/mm3 (0.0-0.1) 09/01/20 16:01 Metamyelocytes # 0.0 K/mm3 09/01/20 16:01 Myelocytes # 0.0 K/mm3 09/01/20 16:01 Promyelocytes # 0.0 K/mm3 09/01/20 16:01 Blast Cells # 0.0 K/mm3 09/01/20 16:01 WBC Morphology Not Reportable 09/01/20 16:01 Hypersegmented Neuts Not Reportable 09/01/20 16:01 Hyposegmented Neuts Not Reportable 09/01/20 16:01 Hypogranular Neuts Not Reportable 09/01/20 16:01 Smudge Cells Not Reportable 09/01/20 16:01 Toxic Granulation Not Reportable 09/01/20 16:01 Toxic Vacuolation Not Reportable 09/01/20 16:01 Dohle Bodies Not Reportable 09/01/20 16:01 Pelger-Huet Anomaly Not Reportable 09/01/20 16:01 Brooke Rods Not Reportable 09/01/20 16:01 Platelet Estimate Not Reportable 09/01/20 16:01 Clumped Platelets Not Reportable 09/01/20 16:01 Plt Clumps, EDTA Not Reportable 09/01/20 16:01 Large Platelets Not Reportable 09/01/20 16:01 Giant Platelets Not Reportable 09/01/20 16:01 Platelet Satelliting Not Reportable 09/01/20 16:01 Plt Morphology Comment Not Reportable 09/01/20 16:01 RBC Morphology Normal 09/01/20 16:01 Dimorphic RBCs Not Reportable 09/01/20 16:01 Polychromasia Not Reportable 09/01/20 16:01 Hypochromasia Not Reportable 09/01/20 16:01 Poikilocytosis Not Reportable 09/01/20 16:01 Anisocytosis Not Reportable 09/01/20 16:01 Microcytosis Not Reportable 09/01/20 16:01 Macrocytosis Not Reportable 09/01/20 16:01 Spherocytes Not Reportable 09/01/20 16:01 Pappenheimer Bodies Not Reportable 09/01/20 16:01 Sickle Cells Not Reportable 09/01/20 16:01 Target Cells Not Reportable 09/01/20 16:01 Tear Drop Cells Not Reportable 09/01/20 16:01 Ovalocytes Not Reportable 09/01/20 16:01 Helmet Cells Not Reportable 09/01/20 16:01 [place] Bodies Not Reportable 09/01/20 16:01 [place] Rings Not Reportable 09/01/20 16:01 Elton Cells Not Reportable 09/01/20 16:01 Bite Cells Not Reportable 09/01/20 16:01 Crenated Cell Not Reportable 09/01/20 16:01 Elliptocytes Not Reportable 09/01/20 16:01 Acanthocytes (Spur) Not Reportable 09/01/20 16:01 Rouleaux Not Reportable 09/01/20 16:01 Hemoglobin C Crystals Not Reportable 09/01/20 16:01 Schistocytes Not Reportable 09/01/20 16:01 Malaria parasites Not Reportable 09/01/20 16:01 Kevin Bodies Not Reportable 09/01/20 16:01 Hem Pathologist Commnt No 09/01/20 16:01 PT 15.0 Sec. (12.2-14.9) H 09/02/20 00:19 INR 1.17 (0.87-1.13) H 09/02/20 00:19 APTT > 240.0 Sec. (24.2-36.6) H* 09/02/20 00:19 Heparin Anti-Xa Level < 0.10 U.I./ml (0.3-0.7) L 09/03/20 03:00 Sodium 137 mmol/L (137-145) 09/03/20 08:51 Potassium 3.2 mmol/L (3.6-5.0) L 09/03/20 08:51 Chloride 98.8 mmol/L (98-107) 09/03/20 08:51 Carbon Dioxide 27 mmol/L (22-30) 09/03/20 08:51 Anion Gap 14 mmol/L 09/03/20 08:51 BUN 9 mg/dL (9-20) 09/03/20 08:51 Creatinine 0.8 mg/dL (0.8-1.3) 09/03/20 08:51 Estimated GFR > 60 ml/min 09/03/20 08:51 BUN/Creatinine Ratio 11 % 09/03/20 08:51 Glucose 128 mg/dL (75-100) H 09/03/20 08:51 Calcium 9.0 mg/dL (8.4-10.2) 09/03/20 08:51 Total Bilirubin 0.50 mg/dL (0.1-1.2) 09/02/20 00:19 Direct Bilirubin < 0.2 mg/dL (0-0.2) 09/02/20 00:19 Indirect Bilirubin 0.3 mg/dL 09/02/20 00:19 AST 31 units/L (5-40) 09/02/20 00:19 ALT 30 units/L (7-56) 09/02/20 00:19 Alkaline Phosphatase 73 units/L (35-129) 09/02/20 00:19 Troponin T < 0.010 ng/mL (0.00-0.029) 09/01/20 22:54 Total Protein 6.6 g/dL (6.3-8.2) 09/02/20 00:19 Albumin 4.0 g/dL (3.9-5) 09/02/20 00:19 Albumin/Globulin Ratio 1.5 % 09/02/20 00:19 Lipase 15 units/L (13-60) 09/01/20 16:01 Urine Color Yellow (Yellow) 09/01/20 Unknown Urine Turbidity Clear (Clear) 09/01/20 Unknown Urine pH 7.0 (5.0-7.0) 09/01/20 Unknown Ur Specific [place] 1.029 (1.003-1.030) 09/01/20 Unknown Urine Protein 30 mg/dl mg/dL (Negative) 09/01/20 Unknown Urine Glucose (UA) Neg mg/dL (Negative) 09/01/20 Unknown Urine Ketones Tr mg/dL (Negative) 09/01/20 Unknown Urine Blood Neg (Negative) 09/01/20 Unknown Urine Nitrite Neg (Negative) 09/01/20 Unknown Urine Bilirubin Neg (Negative) 09/01/20 Unknown Urine Urobilinogen < 2.0 mg/dL (<2.0) 09/01/20 Unknown Ur Leukocyte Esterase Neg (Negative) 09/01/20 Unknown Urine WBC (Auto) < 1.0 /HPF (0.0-6.0) 09/01/20 Unknown Urine RBC (Auto) 1.0 /HPF (0.0-6.0) 09/01/20 Unknown U Epithel Cells (Auto) < 1.0 /HPF (0-13.0) 09/01/20 Unknown Urine Mucus Few /HPF 09/01/20 Unknown Microbiology: Microbiology 09/02/20 20:39 Peripheral/Venous Blood Culture - Preliminary Culture in Progress 09/02/20 20:39 Peripheral/Venous Blood Culture - Preliminary Culture in Progress Rubio/IV: Voiding Method Toilet IV Catheter Type [Right INT / Saline Lock Forearm] Active Medications - Current Medications Current Medications: Generic Name Dose Route Start Last Admin Trade Name Freq PRN Reason Stop Dose Admin Acetaminophen 650 mg 09/02/20 01:45 09/02/20 19:07 Tylenol PO 650 mg Q4H PRN Administration Pain MILD(1-3)/Fever >100.5/MANUEL Heparin Sodium/Sodium Chloride 25,000 unit in 500 mls @ 23 mls/hr 09/02/20 02:00 09/03/20 03:13 Heparin/ 0.45% Nacl-25,000 Unit/500 Ml IV 1,350 units/hr TITR SAMUEL 27 mls/hr Titration Protocol 1,150 UNITS/HR Sodium Chloride 1,000 mls @ 75 mls/hr 09/02/20 01:45 09/02/20 17:30 Nacl 0.9% 1000 Ml IV 75 mls/hr DIRECT SAMUEL Administration Labetalol HCl 10 mg 09/03/20 06:10 09/03/20 06:42 Labetalol IV 10 mg Q4H PRN Administration Hypertension Magnesium Hydroxide 30 ml 09/02/20 01:45 Milk Of Magnesia PO Q4H PRN Constipation Metoprolol Tartrate 12.5 mg 09/03/20 10:00 09/03/20 09:46 Metoprolol PO 12.5 mg BID SAMUEL Administration Morphine Sulfate 2 mg 09/02/20 01:45 09/03/20 09:38 Morphine IV 2 mg Q4H PRN Administration Pain, Moderate (4-6) Ondansetron HCl 4 mg 09/02/20 01:45 Zofran IV Q8H PRN Nausea And Vomiting Sodium Chloride 10 ml 09/02/20 10:00 09/02/20 22:50 Sodium Chloride Flush Syringe 10 Ml IV 10 ml BID SAMUEL Administration Sodium Chloride 10 ml 09/02/20 01:45 Sodium Chloride Flush Syringe 10 Ml IV PRN PRN LINE FLUSH
[2020-09-03 11:30] LABS: Basophils % (Manual) 0 % (0.0-1.8); Eosinophils % (Manual) 0 % (0.0-4.3); Total Cells Counted 100
[2020-09-03 11:31] LABS: Platelet Estimate Consistent w Auto; RBC Morphology Normal
[2020-09-03] MEDS ORDERED: HEPARIN 10,000 UNITS/10 ML VIAL IV ONE ×2 (12:17→12:29)
[2020-09-03] MEDS: HEPARIN/ 0.45% NACL DRIP 25,000 UNIT/500 ML BAG IV SCH (15:49)
[2020-09-03] MEDS: SODIUM CHLORIDE 0.9% 1000 ML 1,000 ML IV SCH (15:49)
[2020-09-03] MEDS ORDERED: POTASSIUM CHLORIDE ER 20 MEQ TAB PO NR (16:03)
--- NOTE | 2020-09-03 16:16 | Progress Note ---
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 This may be the cause of his renal infarct. His TTE was fairly unremarkable. The patient may benefit from a SEVERINO to provide additional information however Cardiology could answer whether or not that would be helpful. If the diverticulum is the cause of his renal infarct he will likely require a stent graft placement vs some other endovascular repair as the stent graft placement would require additional limbs/bypasses given the proximity to the left subclavian artery. This procedure is not performed in this hospital so he would likely require definitive care at [facility] or [place]. This could be performed as an outpatient however he would need to be discharged with oral anticoagulation until he was able to undergo surgical management. Subjective Date of service: 09/03/20 Interval history: The patient has no new complaints. Objective - Constitutional Vitals: Vital Signs - 12hr 09/03/20 09/03/20 09/03/20 04:44 06:42 09:45 Temperature 100.1 F H Pulse Rate 108 H 108 H Respiratory 20 Rate Blood Pressure 154/103 154/103 118/78 O2 Sat by Pulse 96 Oximetry 09/03/20 09:46 Temperature Pulse Rate 104 H Respiratory Rate Blood Pressure 118/78 O2 Sat by Pulse Oximetry General appearance: Present: no acute distress - Neck Neck: supple - Respiratory Respiratory effort: normal - Cardiovascular Rhythm: regular Extremities: no ischemia, pulses intact - Gastrointestinal General gastrointestinal: Present: soft, non-tender, non-distended - Labs CBC & Chem 7: 09/03/20 08:51 09/03/20 08:51 Labs: Abnormal lab results 09/02/20 09/03/20 09/03/20 Range/Units 23:46 03:00 08:51 WBC 17.2 H (4.5-11.0) K/mm3 RBC 5.72 H (3.65-5.03) M/mm3 Hgb 16.2 H (11.8-15.2) gm/dl Hct 46.4 H (35.5-45.6) % MCV 81 L (84-94) fl MCHC 35 H (32-34) % Seg Neuts % (Manual) 85.0 H (40.0-70.0) % Lymphocytes % (Manual) 5.0 L (13.4-35.0) % Monocytes % (Manual) 10.0 H (0.0-7.3) % Seg Neutrophils # Man 14.6 H (1.8-7.7) K/mm3 Lymphocytes # (Manual) 0.9 L (1.2-5.4) K/mm3 Monocytes # (Manual) 1.7 H (0.0-0.8) K/mm3 INR (0.87-1.13) Heparin Anti-Xa Level 0.18 L < 0.10 L (0.3-0.7) U.I./ml Potassium (3.6-5.0) mmol/L Glucose (75-100) mg/dL 09/03/20 09/03/20 Range/Units 08:51 08:51 WBC (4.5-11.0) K/mm3 RBC (3.65-5.03) M/mm3 Hgb (11.8-15.2) gm/dl Hct (35.5-45.6) % MCV (84-94) fl MCHC (32-34) % Seg Neuts % (Manual) (40.0-70.0) % Lymphocytes % (Manual) (13.4-35.0) % Monocytes % (Manual) (0.0-7.3) % Seg Neutrophils # Man (1.8-7.7) K/mm3 Lymphocytes # (Manual) (1.2-5.4) K/mm3 Monocytes # (Manual) (0.0-0.8) K/mm3 INR 1.16 H (0.87-1.13) Heparin Anti-Xa Level < 0.10 L (0.3-0.7) U.I./ml Potassium 3.2 L (3.6-5.0) mmol/L Glucose 128 H (75-100) mg/dL - Imaging and cardiology CT scan - abdomen: image reviewed CT scan - chest: image reviewed Medications & Allergies - Medications Allergies/Adverse Reactions: Allergies No Known Allergies Allergy (Verified 09/01/20 23:50) Home Medications: Home Medications Medication Instructions Recorded Confirmed Last Taken Type Atorvastatin [Lipitor Tab] 40 mg PO QHS 09/02/20 09/02/20 08/31/20 History Losartan Potassium 50 mg PO 09/02/20 08/31/20 History hydroCHLOROthiazide [HCTZ] 25 mg PO QDAY 09/02/20 09/02/20 08/31/20 History Active Medications: Generic Name Dose Route Start Last Admin Trade Name Freq PRN Reason Stop Dose Admin Acetaminophen 650 mg 09/02/20 01:45 09/02/20 19:07 Tylenol PO 650 mg Q4H PRN Administration Pain MILD(1-3)/Fever >100.5/MANUEL Heparin Sodium/Sodium Chloride 25,000 unit in 500 mls @ 23 mls/hr 09/02/20 02:00 09/03/20 15:49 Heparin/ 0.45% Nacl-25,000 Unit/500 Ml IV 1,550 units/hr TITR SAMUEL 31 mls/hr Administration Protocol 1,150 UNITS/HR Sodium Chloride 1,000 mls @ 75 mls/hr 09/02/20 01:45 09/03/20 15:49 Nacl 0.9% 1000 Ml IV 75 mls/hr DIRECT SAMUEL Administration Labetalol HCl 10 mg 09/03/20 06:10 09/03/20 06:42 Labetalol IV 10 mg Q4H PRN Administration Hypertension Magnesium Hydroxide 30 ml 09/02/20 01:45 Milk Of Magnesia PO Q4H PRN Constipation Metoprolol Tartrate 12.5 mg 09/03/20 10:00 09/03/20 09:46 Metoprolol PO 12.5 mg BID SAMUEL Administration Morphine Sulfate 2 mg 09/02/20 01:45 09/03/20 14:26 Morphine IV 2 mg Q4H PRN Administration Pain, Moderate (4-6) Ondansetron HCl 4 mg 09/02/20 01:45 Zofran IV Q8H PRN Nausea And Vomiting Sodium Chloride 10 ml 09/02/20 10:00 09/03/20 11:00 Sodium Chloride Flush Syringe 10 Ml IV 10 ml BID SAMUEL Administration Sodium Chloride 10 ml 09/02/20 01:45 Sodium Chloride Flush Syringe 10 Ml IV PRN PRN LINE FLUSH HEART Score - HEART Score Troponin: Troponin T < 0.010 ng/mL (0.00-0.029) 09/01/20 22:54
[2020-09-03] MEDS: ACETAMINOPHEN 325 MG TAB PO PRN (23:09)
[2020-09-04] MEDS: MORPHINE 2 MG/1 ML INJ IV PRN ×2 (06:09→14:36)
[2020-09-04] MEDS: SODIUM CHLORIDE 0.9% 1000 ML 1,000 ML IV SCH ×2 (06:16→19:53)
[2020-09-04 09:07] LABS: Hematocrit 40.8 % (35.5-45.6); Hemoglobin 14.1 gm/dl (11.8-15.2)
[2020-09-04] MEDS: METOPROLOL TARTRATE 25 MG TAB PO SCH (09:40)
[2020-09-04] MEDS: HEPARIN/ 0.45% NACL DRIP 25,000 UNIT/500 ML BAG IV SCH (09:45)
--- NOTE | 2020-09-04 10:26 | Progress Note ---
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 --Acute renal infarct/lower pole left kidney' Current Visit: Yes Status: Acute Plan to address problem: Possible source mural thrombus thoracic aorta . 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 containing a small amount of mural thrombus Could be the source of embolism related to left renal infarct Cardiology advised COVID-19 test, prior to SEVERINO However today cardiology feels that patient does not need SEVERINO --Hypokalemia; Replenish with oral KCl, monitor electrolytes. --SIRS; Current Visit: Yes Status: Acute Plan to address problem: By criteria, fever, tachycardia, leukocytosis, Urine and blood cultures Chest x-ray negative, urine analysis negative -Hypertension; Current Visit: Yes Status: Acute Plan to address problem: Continue metoprolol, as needed labetalol Closely monitor --DVT prophylaxis Current Visit: Yes Status: Acute Plan to address problem: Patient on heparin drip --Full code status Current Visit: Yes Status: Acute We will closely monitor the patient and adjust management as needed Follow vascular and cardiology evaluation and recommendations Plan of care reviewed with the patient and his nurse Possible discharge tomorrow if stable Case management To assist with medications and discharge planning History Interval history: Patient seen and examined medical records reviewed Patient feels slightly better no new complaints Vital signs noted Heparin drip Hospitalist Physical - Constitutional Vitals: Temp Pulse Resp BP Pulse Ox 99.7 F H 99 H 22 154/102 97 09/04/20 06:11 09/04/20 06:16 09/04/20 06:11 09/04/20 06:16 09/04/20 06:11 General appearance: Present: no acute distress, well-nourished - EENT Eyes: Present: PERRL, EOM intact - Neck Neck: Present: supple, normal ROM - Respiratory Respiratory effort: normal Respiratory: bilateral: diminished, negative: rales, rhonchi, wheezing - Cardiovascular Rhythm: regular Heart Sounds: Present: S1 & S2 - Extremities Extremities: no ischemia, No edema - Abdominal General gastrointestinal: soft, non-tender, non-distended, normal bowel sounds - Integumentary Integumentary: Present: clear, warm - Psychiatric Psychiatric: appropriate mood/affect, cooperative - Neurologic Neurologic: CNII-XII intact, moves all extremities HEART Score - HEART Score Troponin: Troponin T < 0.010 ng/mL (0.00-0.029) 09/01/20 22:54 Results - Labs CBC & Chem 7: 09/04/20 07:09 09/03/20 08:51 Labs: Laboratory Last Values WBC 17.2 K/mm3 (4.5-11.0) H 09/03/20 08:51 RBC 5.72 M/mm3 (3.65-5.03) H 09/03/20 08:51 Hgb 14.1 gm/dl (11.8-15.2) 09/04/20 07:09 Hct 40.8 % (35.5-45.6) 09/04/20 07:09 MCV 81 fl (84-94) L 09/03/20 08:51 MCH 28 pg (28-32) 09/03/20 08:51 MCHC 35 % (32-34) H 09/03/20 08:51 RDW 13.3 % (13.2-15.2) 09/03/20 08:51 Plt Count 146 K/mm3 (140-440) 09/04/20 07:09 Lymph % (Auto) Merchandising Coordinator 09/03/20 08:51 [place] % (Auto) Merchandising Coordinator 09/03/20 08:51 Eos % (Auto) Merchandising Coordinator 09/03/20 08:51 Baso % (Auto) Merchandising Coordinator 09/03/20 08:51 Lymph # (Auto) Merchandising Coordinator 09/03/20 08:51 [place] # (Auto) Merchandising Coordinator 09/03/20 08:51 Eos # (Auto) Merchandising Coordinator 09/03/20 08:51 Baso # (Auto) Merchandising Coordinator 09/03/20 08:51 Add Manual Diff Complete 09/03/20 08:51 Total Counted 100 09/03/20 08:51 Seg Neutrophils % Merchandising Coordinator 09/03/20 08:51 Seg Neuts % (Manual) 85.0 % (40.0-70.0) H 09/03/20 08:51 Band Neutrophils % 0 % 09/03/20 08:51 Lymphocytes % (Manual) 5.0 % (13.4-35.0) L 09/03/20 08:51 Reactive Lymphs % (Man) 0 % 09/03/20 08:51 Monocytes % (Manual) 10.0 % (0.0-7.3) H 09/03/20 08:51 Eosinophils % (Manual) 0 % (0.0-4.3) 09/03/20 08:51 Basophils % (Manual) 0 % (0.0-1.8) 09/03/20 08:51 Metamyelocytes % 0 % 09/03/20 08:51 Myelocytes % 0 % 09/03/20 08:51 Promyelocytes % 0 % 09/03/20 08:51 Blast Cells % 0 % 09/03/20 08:51 Nucleated RBC % Not Reportable 09/03/20 08:51 Seg Neutrophils # Merchandising Coordinator 09/03/20 08:51 Seg Neutrophils # Man 14.6 K/mm3 (1.8-7.7) H 09/03/20 08:51 Band Neutrophils # 0.0 K/mm3 09/03/20 08:51 Lymphocytes # (Manual) 0.9 K/mm3 (1.2-5.4) L 09/03/20 08:51 Abs React Lymphs (Man) 0.0 K/mm3 09/03/20 08:51 Monocytes # (Manual) 1.7 K/mm3 (0.0-0.8) H 09/03/20 08:51 Eosinophils # (Manual) 0.0 K/mm3 (0.0-0.4) 09/03/20 08:51 Basophils # (Manual) 0.0 K/mm3 (0.0-0.1) 09/03/20 08:51 Metamyelocytes # 0.0 K/mm3 09/03/20 08:51 Myelocytes # 0.0 K/mm3 09/03/20 08:51 Promyelocytes # 0.0 K/mm3 09/03/20 08:51 Blast Cells # 0.0 K/mm3 09/03/20 08:51 WBC Morphology Not Reportable 09/03/20 08:51 Hypersegmented Neuts Not Reportable 09/03/20 08:51 Hyposegmented Neuts Not Reportable 09/03/20 08:51 Hypogranular Neuts Not Reportable 09/03/20 08:51 Smudge Cells Not Reportable 09/03/20 08:51 Toxic Granulation Not Reportable 09/03/20 08:51 Toxic Vacuolation Not Reportable 09/03/20 08:51 Dohle Bodies Not Reportable 09/03/20 08:51 Pelger-Huet Anomaly Not Reportable 09/03/20 08:51 Brooke Rods Not Reportable 09/03/20 08:51 Platelet Estimate Consistent w auto 09/03/20 08:51 Clumped Platelets Not Reportable 09/03/20 08:51 Plt Clumps, EDTA Not Reportable 09/03/20 08:51 Large Platelets Not Reportable 09/03/20 08:51 Giant Platelets Not Reportable 09/03/20 08:51 Platelet Satelliting Not Reportable 09/03/20 08:51 Plt Morphology Comment Not Reportable 09/03/20 08:51 RBC Morphology Normal 09/03/20 08:51 Dimorphic RBCs Not Reportable 09/03/20 08:51 Polychromasia Not Reportable 09/03/20 08:51 Hypochromasia Not Reportable 09/03/20 08:51 Poikilocytosis Not Reportable 09/03/20 08:51 Anisocytosis Not Reportable 09/03/20 08:51 Microcytosis Not Reportable 09/03/20 08:51 Macrocytosis Not Reportable 09/03/20 08:51 Spherocytes Not Reportable 09/03/20 08:51 Pappenheimer Bodies Not Reportable 09/03/20 08:51 Sickle Cells Not Reportable 09/03/20 08:51 Target Cells Not Reportable 09/03/20 08:51 Tear Drop Cells Not Reportable 09/03/20 08:51 Ovalocytes Not Reportable 09/03/20 08:51 Helmet Cells Not Reportable 09/03/20 08:51 [place] Bodies Not Reportable 09/03/20 08:51 [place] Rings Not Reportable 09/03/20 08:51 [place] Cells Not Reportable 09/03/20 08:51 Bite Cells Not Reportable 09/03/20 08:51 Crenated Cell Not Reportable 09/03/20 08:51 Elliptocytes Not Reportable 09/03/20 08:51 Acanthocytes (Spur) Not Reportable 09/03/20 08:51 Rouleaux Not Reportable 09/03/20 08:51 Hemoglobin C Crystals Not Reportable 09/03/20 08:51 Schistocytes Not Reportable 09/03/20 08:51 Malaria parasites Not Reportable 09/03/20 08:51 Kevin Bodies Not Reportable 09/03/20 08:51 Hem Pathologist Commnt No 09/03/20 08:51 PT 14.9 Sec. (12.2-14.9) 09/03/20 08:51 INR 1.16 (0.87-1.13) H 09/03/20 08:51 APTT > 240.0 Sec. (24.2-36.6) H* 09/02/20 00:19 Heparin Anti-Xa Level 0.38 U.I./ml (0.3-0.7) 09/03/20 19:48 Sodium 137 mmol/L (137-145) 09/03/20 08:51 Potassium 3.2 mmol/L (3.6-5.0) L 09/03/20 08:51 Chloride 98.8 mmol/L (98-107) 09/03/20 08:51 Carbon Dioxide 27 mmol/L (22-30) 09/03/20 08:51 Anion Gap 14 mmol/L 09/03/20 08:51 BUN 9 mg/dL (9-20) 09/03/20 08:51 Creatinine 0.8 mg/dL (0.8-1.3) 09/03/20 08:51 Estimated GFR > 60 ml/min 09/03/20 08:51 BUN/Creatinine Ratio 11 % 09/03/20 08:51 Glucose 128 mg/dL (75-100) H 09/03/20 08:51 Calcium 9.0 mg/dL (8.4-10.2) 09/03/20 08:51 Total Bilirubin 0.50 mg/dL (0.1-1.2) 09/02/20 00:19 Direct Bilirubin < 0.2 mg/dL (0-0.2) 09/02/20 00:19 Indirect Bilirubin 0.3 mg/dL 09/02/20 00:19 AST 31 units/L (5-40) 09/02/20 00:19 ALT 30 units/L (7-56) 09/02/20 00:19 Alkaline Phosphatase 73 units/L (35-129) 09/02/20 00:19 Troponin T < 0.010 ng/mL (0.00-0.029) 09/01/20 22:54 Total Protein 6.6 g/dL (6.3-8.2) 09/02/20 00:19 Albumin 4.0 g/dL (3.9-5) 09/02/20 00:19 Albumin/Globulin Ratio 1.5 % 09/02/20 00:19 Lipase 15 units/L (13-60) 09/01/20 16:01 Urine Color Yellow (Yellow) 09/01/20 Unknown Urine Turbidity Clear (Clear) 09/01/20 Unknown Urine pH 7.0 (5.0-7.0) 09/01/20 Unknown Ur Specific [place] 1.029 (1.003-1.030) 09/01/20 Unknown Urine Protein 30 mg/dl mg/dL (Negative) 09/01/20 Unknown Urine Glucose (UA) Neg mg/dL (Negative) 09/01/20 Unknown Urine Ketones Tr mg/dL (Negative) 09/01/20 Unknown Urine Blood Neg (Negative) 09/01/20 Unknown Urine Nitrite Neg (Negative) 09/01/20 Unknown Urine Bilirubin Neg (Negative) 09/01/20 Unknown Urine Urobilinogen < 2.0 mg/dL (<2.0) 09/01/20 Unknown Ur Leukocyte Esterase Neg (Negative) 09/01/20 Unknown Urine WBC (Auto) < 1.0 /HPF (0.0-6.0) 09/01/20 Unknown Urine RBC (Auto) 1.0 /HPF (0.0-6.0) 09/01/20 Unknown U Epithel Cells (Auto) < 1.0 /HPF (0-13.0) 09/01/20 Unknown Urine Mucus Few /HPF 09/01/20 Unknown Microbiology: Microbiology 09/02/20 20:39 Peripheral/Venous Blood Culture - Preliminary NO GROWTH AFTER 24 HOURS 09/02/20 20:39 Peripheral/Venous Blood Culture - Preliminary NO GROWTH AFTER 24 HOURS - Diagnostic Impressions Diagnostic Impressions: Echocardiogram 09/02/20 11:37 Transthoracic Echocardiogram Indication: Acute renal infarct BP: 145/90 HR: 99 Conclusions *Global left ventricular systolic function is normal. *The estimated ejection fraction is 55-60%. *Mild concentric left ventricular hypertrophy is observed. *There is mild mitral regurgitation. *There is mild tricuspid regurgitation. Findings Left Ventricle: The left ventricular chamber size is normal. Mild concentric left ventricular hypertrophy is observed. Global left ventricular systolic function is normal. The estimated ejection fraction is 55-60%. Left Atrium: The left atrial chamber size is normal. Right Ventricle: The right ventricular cavity size is normal. The right ventricular global systolic function is normal. Right Atrium: The right atrial cavity size is normal. Aortic Valve: The aortic valve is trileaflet. There is no evidence of aortic regurgitation. There is no evidence of aortic stenosis. Mitral Valve: The mitral valve leaflets appear normal. There is mild mitral regurgitation. There is no evidence of mitral stenosis. Tricuspid Valve: The tricuspid valve leaflets are normal. There is mild tricuspid regurgitation. No pulmonary hypertension is noted. Pulmonic Valve: There is trace pulmonic regurgitation. Pericardium: There is no pericardial effusion. Aorta: There is no dilatation of the ascending aorta. There is no dilatation of the aortic root. Venous: The inferior vena cava appears normal in size. Measurements Chambers 2D Name Value Normal Range IVSd (2D) 1.16 cm (0.6 - 1.1) LVPWd (2D) 1.17 cm (0.6 - 1.1) LVIDd (2D) 4.22 cm (3.7 - 5.6) LVIDs (2D) 2.96 cm (2 - 3.8) LV FS (2D) 29.78 % - EF Teichholz (2D) 57.27 % - Ao root diameter (2D) 2.83 cm (2 - 3.7) Volumes/Mass Name Value Normal Range LA ESV SP 4CH (A/L) 60.96 ml - LA ESV SP 2CH (A/L) 43.42 ml - LA ESV BP (A/L) 51.52 ml - LA ESV SP 4CH (MOD) 55.9 ml - LA ESV SP 2CH (MOD) 42.05 ml - LV EDV SP 4CH (MOD) 113.47 ml - LV ESV SP 4CH (MOD) 47.64 ml - EF SP 4CH (MOD) 58.02 % - LV EDV SP 2CH (MOD) 114.49 ml - LV ESV SP 2CH (MOD) 49.89 ml - EF SP 2CH (MOD) 56.43 % - LV EDV BP 119.53 ml - LV ESV BP 53.08 ml - BP EF (MOD) 55.6 % - Diastolic/Systolic Function Name Value Normal Range MV E-wave Vmax 0.67 m/sec - MV deceleration time 26.68 msec - MV A-wave Vmax 0.73 m/sec - MV E:A ratio 0.91 ratio - Aortic Valve Name Value Normal Range AV Vmax 1.27 m/sec - AV VTI 21.62 cm - AV peak gradient 6.47 mmHg - AV mean gradient 3.52 mmHg - LVOT diameter 2.17 cm - LVOT Vmax 1.16 m/sec - LVOT VTI 20.56 cm - LVOT peak gradient 5.42 mmHg - LVOT mean gradient 3.28 mmHg - SV LVOT 76.04 ml - AVANI (continuity Vmax) 3.39 cm2 - AVANI (continuity VTI) 3.52 cm2 - Pulmonic Valve/Qp:Qs Name Value Normal Range PV Vmax 1.34 m/sec - PV peak gradient 7.15 mmHg - PV acceleration time 133.21 msec - Rubio/IV: Voiding Method Toilet IV Catheter Type [Right INT / Saline Lock Forearm] Active Medications - Current Medications Current Medications: Generic Name Dose Route Start Last Admin Trade Name Kaz PRN Reason Stop Dose Admin Acetaminophen 650 mg 09/02/20 01:45 09/03/20 23:09 Tylenol PO 650 mg Q4H PRN Administration Pain MILD(1-3)/Fever >100.5/MANUEL Heparin Sodium/Sodium Chloride 25,000 unit in 500 mls @ 23 mls/hr 09/02/20 02:00 09/04/20 09:45 Heparin/ 0.45% Nacl-25,000 Unit/500 Ml IV 1,550 units/hr TITR SAMUEL 31 mls/hr Administration Protocol 1,150 UNITS/HR Sodium Chloride 1,000 mls @ 75 mls/hr 09/02/20 01:45 09/04/20 06:16 Nacl 0.9% 1000 Ml IV 75 mls/hr DIRECT SAMUEL Administration Labetalol HCl 10 mg 09/03/20 06:10 09/04/20 06:16 Labetalol IV 10 mg Q4H PRN Administration Hypertension Magnesium Hydroxide 30 ml 09/02/20 01:45 Milk Of Magnesia PO Q4H PRN Constipation Metoprolol Tartrate 12.5 mg 09/03/20 10:00 09/04/20 09:40 Metoprolol PO 12.5 mg BID SAMUEL Administration Morphine Sulfate 2 mg 09/02/20 01:45 09/04/20 06:09 Morphine IV 2 mg Q4H PRN Administration Pain, Moderate (4-6) Ondansetron HCl 4 mg 09/02/20 01:45 Zofran IV Q8H PRN Nausea And Vomiting Sodium Chloride 10 ml 09/02/20 10:00 09/04/20 09:42 Sodium Chloride Flush Syringe 10 Ml IV Not Given BID SAMUEL Sodium Chloride 10 ml 09/02/20 01:45 Sodium Chloride Flush Syringe 10 Ml IV PRN PRN LINE FLUSH
--- NOTE | 2020-09-04 10:57 | Consultation ---
History of Present Illness Consult date: 09/04/20 Past History Past Medical History: hypertension, hyperlipidemia Past Surgical History: No surgical history Social history: no significant social history Family history: no significant family history Medications and Allergies Allergies Allergy/AdvReac Type Severity Reaction Status Date / Time No Known Allergies Allergy Verified 09/01/20 23:50 Home Medications Medication Instructions Recorded Confirmed Last Taken Type Atorvastatin [Lipitor Tab] 40 mg PO QHS 09/02/20 09/02/20 08/31/20 History Losartan Potassium 50 mg PO 09/02/20 08/31/20 History hydroCHLOROthiazide [HCTZ] 25 mg PO QDAY 09/02/20 09/02/20 08/31/20 History Active Meds: Active Medications Acetaminophen (Tylenol) 650 mg PO Q4H PRN PRN Reason: Pain MILD(1-3)/Fever >100.5/MANUEL Last Admin: 09/03/20 23:09 Dose: 650 mg Documented by: Heparin Sodium/Sodium Chloride (Heparin/ 0.45% Nacl-25,000 Unit/500 Ml) 25,000 unit in 500 mls @ 23 mls/hr IV TITR SAMUEL; Protocol Last Admin: 09/04/20 09:45 Dose: 1,550 units/hr, 31 mls/hr Documented by: Sodium Chloride (Nacl 0.9% 1000 Ml) 1,000 mls @ 75 mls/hr IV DIRECT SAMUEL Last Admin: 09/04/20 06:16 Dose: 75 mls/hr Documented by: Labetalol HCl (Labetalol) 10 mg IV Q4H PRN PRN Reason: Hypertension Last Admin: 09/04/20 06:16 Dose: 10 mg Documented by: Magnesium Hydroxide (Milk Of Magnesia) 30 ml PO Q4H PRN PRN Reason: Constipation Metoprolol Tartrate (Metoprolol) 12.5 mg PO BID [facility] Last Admin: 09/04/20 09:40 Dose: 12.5 mg Documented by: Morphine Sulfate (Morphine) 2 mg IV Q4H PRN PRN Reason: Pain, Moderate (4-6) Last Admin: 09/04/20 06:09 Dose: 2 mg Documented by: Ondansetron HCl (Zofran) 4 mg IV Q8H PRN PRN Reason: Nausea And Vomiting Sodium Chloride (Sodium Chloride Flush Syringe 10 Ml) 10 ml IV BID [facility] Last Admin: 09/04/20 09:42 Dose: Not Given Documented by: Sodium Chloride (Sodium Chloride Flush Syringe 10 Ml) 10 ml IV PRN PRN PRN Reason: LINE FLUSH Review of Systems Constitutional: poor appetite Ears, nose, mouth and throat: no epistaxis Cardiovascular: no chest pain, no orthopnea Respiratory: no cough Gastrointestinal: nausea Genitourinary Male: no hematuria Rectal: no bleeding Musculoskeletal: no neck pain Integumentary: no rash Neurological: no seizures Psychiatric: no anxiety Physical Examination Vital Signs Temp Pulse Resp BP Pulse Ox 97.4 F L 69 15 146/95 100 09/01/20 15:08 09/01/20 15:08 09/01/20 15:08 09/01/20 15:08 09/01/20 15:08 General appearance: no acute distress, well-nourished Neck: Positive: neck supple, trachea midline Cardiac: Positive: Reg Rate and Rhythm. Negative: Audible Murmur Lungs: Positive: clear to auscultation Neuro: Positive: Grossly Intact Abdomen: Positive: Unremarkable Male genitourinary: Positive: deferred Skin: Negative: Rash Extremities: Present: normal. Absent: edema Results 09/04/20 07:09 09/03/20 08:51 CBC 09/04/20 Range/Units 07:09 Hgb 14.1 (11.8-15.2) gm/dl Hct 40.8 (35.5-45.6) % Plt Count 146 (140-440) K/mm3 EKG interpretations - EKG Sinus rhythms and dysrhythmias: sinus rhythm Assessment and Plan 35-year-old [place] gentleman with history of hypertension and hyperlipidemia no medication was admitted with flank pain, evaluation showed infarct of the left kidney involving the left lower limb volume the lower lobe. 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 This showed small amount of thrombus. EKG showed sinus rhythm within normal limits. Echocardiogram was unremarkable except for mild left ventricular hypertrophy. Patient was evaluated by Dr. Jamel Frias, vascular surgeon. Recommendation is anticoagulation and follow-up at [place] vascular surgery. Question was raised whether we should do a transesophageal echocardiogram. Considering patient has transthoracic echocardiogram which was unremarkable except for mild LVH with no significant valvular abnormalities. Considering this diverticulum involves the thoracic aortic arch, transesophageal echocardiogram would would be that helpful. Would recommend control of his blood pressure and diabetes and agree with a nticoagulation. Would continue warfarin, patient would need supply of his Lovenox. Needs follow-up of his anticoagulation with prothrombin time and INR in the office. Patient appears to be stable. Will discuss with Dr. Calle about the present plan. Patient can be discharged home and be followed as an outpatient. - Patient Problems (1) Hypertension Current Visit: Yes Status: Acute (2) Renal infarct Current Visit: Yes Status: Acute
--- NOTE | 2020-09-04 13:27 | Event Note ---
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 Appreciate cardiology input. Patient will need long-term anticoagulation and evaluation by [facility], or [place] for TEVAR/carotid subclavian bypass with subclavian embolization. Difficulty will be arranging this as patient is self-funded
--- NOTE | 2020-09-04 15:35 | Discharge Summary ---
Providers - Providers Date of Admission: 09/02/20 01:45 Date of discharge: 09/04/20 Attending physician: ISA GREENBERG 09/01/20 23:06 Consult to Physician [CONS] Stat Comment: [facility] Consulting Provider: PARVEZ HAY Physician Instructions: Reason For Exam: Renal Infarct Left 09/03/20 05:28 Consult to Physician [CONS] Routine Comment: Consulting Provider: CRYSTAL FLYNN Physician Instructions: Reason For Exam: Left renal infarct,r/o cardiac source of embolism 09/04/20 13:27 Consult to Case Management [CONS] Routine Services Needed at Discharge: Other Notified:: CM Additional Physician Instructions: needs long term acute care registered nurse anticoagulation options for pt who is self funded ; needs to followup with gayatri begum, or viviane for evaluation for TEVAR and is self-funded Primary care physician: BARREL CLEANER Hospitalization Reason for admission: Left flank pain/left renal infarct Condition: Fair Pertinent studies: CT abdomen and pelvis; acute infarction of the lower pole of the left kidney CTA abdomen; 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 Probably the source of embolism causing the renal infarct EKG showed sinus rhythm within normal limits. Transthoracic echocardiogram was unremarkable except for mild left ventricular hypertrophy. Patient was started on heparin drip, later transitioned to therapeutic dose Lovenox and Coumadin. Vascular recommend long-term anticoagulation with Coumadin , initially overlap with Lovenox till INR is therapeutic at 2-3, and continue only Coumadin Cardiology evaluated the patient, patient did not have any A. fib, or echocardiogram did not show cardio embolic source [place] that there was no need for SEVERINO at this point. Today patient is comfortable no new complaints, Vital signs stable Cardiology and vascular cleared for discharge on therapeutic Lovenox and Coumadin With frequent monitoring of INR to therapeutic goal between 2 and 3 when Lovenox will be discontinued Patient advised to continue Coumadin, follow with cardiology/PMD to monitor INR to the therapeutic goal between 2 and 3 Patient verbalized understanding, Patient is hemodynamically and clinically stable at discharge. Case management has assisted with securing Lovenox and Coumadin for the patient. Discharge diagnosis; --COVID-19 test negative --Thoracic aorta mural thrombus; Current Visit: Yes Status: Acute Plan to address problem: Vascular evaluated, s/p heparin drip subcu Lovenox and Coumadin Discharged on Lovenox and Coumadin, target INR 2-3 patient will follow with vascular services in [facility] for further evaluation As recommended by cardiology --Acute renal infarct/lower pole left kidney' Current Visit: Yes Status: Acute Plan to address problem: Possible source mural thrombus thoracic aorta on CTA chest TTE , no evidence of cardiac source of embolism On Lovenox/Coumadin, Target INR 2-3 CTA chest/CTA abdomen; 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 containing a small amount of mural thrombus Could be the source of embolism related to left renal infarct SEVERINO as outpatient --Hypokalemia; Replenish with oral KCl, monitor electrolytes. --SIRS; Current Visit: Yes Status: Acute Plan to address problem: By criteria, fever, tachycardia, leukocytosis, Urine and blood cultures Chest x-ray negative, urine analysis negative -Hypertension; Current Visit: Yes Status: Acute Plan to address problem: Well-controlled Cleared by cardiology vascular for discharge and follow-up as outpatient Stable at discharge Disposition: DC-01 TO HOME OR SELFCARE Time spent for discharge: 32 min Core Measure Documentation - Palliative Care Palliative Care/ Comfort Measures: Not Applicable - Core Measures Any of the following diagnoses?: none Exam - Constitutional Vitals: Temp Pulse Resp BP Pulse Ox 98.9 F 91 H 15 131/89 97 09/04/20 12:06 09/04/20 12:06 09/04/20 12:06 09/04/20 12:06 09/04/20 12:06 General appearance: Present: no acute distress, well-nourished - EENT Eyes: Present: PERRL, EOM intact - Neck Neck: Present: supple, normal ROM - Respiratory Respiratory effort: normal Respiratory: bilateral: diminished, negative: rales, rhonchi, wheezing - Cardiovascular Rhythm: regular Heart Sounds: Present: S1 & S2 - Extremities Extremities: no ischemia, No edema - Abdominal General gastrointestinal: Present: soft, non-tender, non-distended, normal bowel sounds - Integumentary Integumentary: Present: clear, warm - Musculoskeletal Musculoskeletal: strength equal bilaterally - Psychiatric Psychiatric: appropriate mood/affect, cooperative - Neurologic Neurologic: CNII-XII intact, moves all extremities Plan Activity: advance as tolerated Diet: low salt Additional Instructions: Advised to comply with medications, follow-up visits. Frequent checks of INR at tape recorder repairer office. Target INR 2-3. Follow-up with vascular, vascular will set up appointment with vascular surgery at [place] at follow-up visit. If you have worsening symptoms contact MD or go to emergency room as needed Follow up with: PRIMARY CARE, [Primary Care Provider] - 3-5 Days LISSY ALLEN MD [Staff Physician] - 7 Days PARVEZ HAY MD [Staff Physician] - 7 Days Prescriptions: Warfarin [Coumadin] 5 mg PO QHS #30 tablet Losartan [Cozaar] 50 mg PO QDAY #30 tablet hydroCHLOROthiazide [HCTZ] 25 mg PO QDAY #30 Enoxaparin Sodium [Lovenox] 80 mg SQ Q12H #14 syringe oxyCODONE /ACETAMINOPHEN [Percocet 5/325] 1 tab PO Q8H #15 tablet
[2020-09-04] MEDS ORDERED: WARFARIN 10 MG TAB PO SCH ×2 (17:00→18:00)
[2020-09-04 17:18] VITALS: BP 139/94
[2020-09-04] MEDS: ACETAMINOPHEN 325 MG TAB PO PRN (17:35)
[2020-09-04] MEDS ORDERED: cefTRIAXone/NS 1 GM/50 ML 1 GM/50 ML BAG IV ONE (22:00)
[2020-09-04] MEDS ORDERED: ENOXAPARIN 100 MG/1 ML INJ SUB-Q SCH (22:00)
[2020-09-04] MEDS ORDERED: ENOXAPARIN 100 MG/1 ML INJ SUB-Q ONE (23:30)
[2020-09-04] MEDS ORDERED: METOPROLOL TARTRATE 25 MG TAB ONE (23:30)
[2020-09-04] MEDS ORDERED: cefTRIAXone/NS 1 GM/50 ML IVPB IV ONE (23:30)
[2020-09-05] MEDS ORDERED: cefTRIAXone/NS 1 GM/50 ML 1 GM/50 ML BAG IV SCH (10:00)
[2020-09-05] MEDS ORDERED: METOPROLOL TARTRATE 25 MG TAB ONE (10:00)
[2020-09-05] MEDS ORDERED: cefTRIAXone/NS 1 GM/50 ML IVPB IV ONE (10:00)
[2020-09-05] MEDS ORDERED: ENOXAPARIN 100 MG/1 ML INJ SUB-Q ONE (10:00)
[2020-09-05] MEDS ORDERED: SODIUM CHLORIDE 0.9% 1000 ML IV SOLN ONE (11:00)
--- NOTE | 2020-09-06 08:55 | Progress Note ---
Assessment and Plan DOS: 09/05/2020 35-year-old [place] gentleman with history of hypertension and hyperlipidemia no medication was admitted with flank pain, evaluation showed infarct of the left kidney involving the left lower limb volume the lower lobe. 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 This showed small amount of thrombus. EKG showed sinus rhythm within normal limits. Echocardiogram was unremarkable except for mild left ventricular hypertrophy. Patient was evaluated by Dr. Jamel Frias, vascular surgeon. Recommendation is anticoagulation and follow-up at [place] vascular surgery. Question was raised whether we should do a transesophageal echocardiogram. Considering patient has transthoracic echocardiogram which was unremarkable except for mild LVH with no significant valvular abnormalities. Considering this diverticulum involves the thoracic aortic arch, transesophageal echocardiogram would would be that helpful. Would recommend control of his blood pressure and diabetes and agree with anticoagulation. Would continue warfarin, patient would need supply of his Lovenox. Needs follow-up of his anticoagulation with prothrombin time and INR in the office. Patient appears to be stable. Patient can be discharged home and be followed as an outpatient. Recommend pt follow up in our office with Dr. Ortiz within 2 weeks of discharge ([phone]). The patient has been seen in conjunction with Dr. Ortiz who agrees with the assessment and plan of care. - Patient Problems (1) Hypertension Current Visit: Yes Status: Acute (2) Renal infarct Current Visit: Yes Status: Acute Subjective Date of service: 09/05/20 Principal diagnosis: kidney infarct Interval history: A&O, no complaints. not wearing remote telemetry. Objective - Physical Examination General: No Apparent Distress HEENT: Positive: PERRL Neck: Positive: neck supple, trachea midline Cardiac: Positive: Reg Rate and Rhythm, S1/S2 Lungs: Positive: Decreased Breath Sounds Neuro: Positive: Grossly Intact Abdomen: Positive: Unremarkable Skin: Negative: Rash Extremities: Present: normal. Absent: edema - EKG Sinus rhythms and dysrhythmias: sinus rhythm
[2020-09-07 13:00] LABS: INR 1.72 (0.87-1.13)
== END 2020-09-05 16:10 | disposition home or self-care (01) | DRG 699 ==
LOC: ED 13:39 → 3A 09-02 01:45
PROVIDERS: ADMIT Internal Medicine Geriatric Medicine; ATTEND Internal Medicine
DX: N28.0 Ischemia and infarction of kidney (principal); I74.11 Embolism and thrombosis of thoracic aorta; R65.10 Systemic inflammatory response syndrome (SIRS) of non-infectious origin without acute organ dysfunction; I10 Essential (primary) hypertension; E78.5 Hyperlipidemia, unspecified; Z20.828 Contact with and (suspected) exposure to other viral communicable diseases; E87.6 Hypokalemia
CPT/HCPCS: 36415; 71045; 71275; 74174; 74177; 80048; 80053; 80076; 81001; 83690; 84484; 85007; 85014; 85018; 85025; 85049; 85520; 85610; 85730; 87040; 87086; 93005; 93306; 96361; 96365; 96375; G0378; J0696; J1644; J1650; J2270; J2405; J7030; Q9967; U0003